=== PATIENT | female | born 1975 | race Caucasian/White ===

== ENCOUNTER 2020-02-29 09:52 | Outpatient (CLI) | payer OTHER, SELFPAY ==
--- NOTE | ~2020-02-29 | XR_ITS ---
XR knee LT 2V DATE: 02/29/2020 10:22 INDICATION: Left knee pain. Child with injury. TECHNIQUE: Standing AP and lateral views COMPARISON: None FINDINGS: There is suprapatellar knee joint effusion. No fracture or dislocation, periosteal reaction or bone destruction, radiopaque intra-articular loose body or chondrocalcinosis is detected. IMPRESSION: Knee joint effusion Reviewed, dictated and finalized at location A. IMPRESSION: Knee joint effusion
== END 2020-02-29 09:53 | disposition home or self-care (01) ==
LOC: ANHIMG 10:00
PROVIDERS: PCP Family Medicine; Visit Provider Nurse Practitioner Family
DX: M25.562 Pain in left knee (principal); M25.462 Effusion, left knee
CPT/HCPCS: 73560

== ENCOUNTER 2020-05-28 10:18 | Outpatient (NON) | payer OTHER, SELFPAY ==
[2020-05-30 18:50] LABS: SARS-CoV-2 RNA PCR Positive
== END 2020-05-28 10:19 ==
LOC: ANHCOVIDDT 10:19
PROVIDERS: PCP Family Medicine; Visit Provider Physician Assistant Medical
DX: U07.1 COVID-19 (principal)
CPT/HCPCS: C9803; U0003

== ENCOUNTER 2020-09-05 16:17 | Outpatient (CLI) | payer OTHER, SELFPAY ==
--- NOTE | ~2020-09-05 | CT_ITS ---
EXAMINATION: CT abdomen pelvis wo con DATE: 09/05/2020 16:43 INDICATION: Lower abdominal pain TECHNIQUE: Computed tomography (CT) of the abdomen and pelvis was performed without intravenous contr ast. Automated exposure control and iterative reconstruction technique were employed. Exam dose: 714 .95 mGy-cm total exam DLP. COMPARISON: right upper quadrant abdominal ultrasound, reported normal FINDINGS: The lung bases are clear. Normal heart size. No pericardial or pleural effusion. The liver, gallbladder, bile ducts, spleen, pancreas, pancreatic duct and adrenal glands are unremark able. 2.5 x 4 mm nonobstructing lower pole left renal calculus. No other urinary tract calculus or hydroure teronephrosis. The urinary bladder is evacuated. Uterus and adnexal areas are unremarkable. Normal caliber of the abdominal aorta. No intraperitoneal or retroperitoneal or pelvic mass lesion or adenopathy or ascites. Normal appendix. There is a prominent of fecal material in the colon but no bowel obstruction. No bow el wall thickening, pneumatosis or intraperitoneal free air. Small fat-containing umbilical hernia. There are bilateral L5 pars interarticularis defects with associated grade 1 anterolisthesis at L5-S1 . Severe degenerative disc disease at L5-S1. No suspicious osteolytic or osteoblastic lesions. IMPRESSION: 2.5 x 4 mm nonobstructing lower pole left renal calculus; no other urinary tract calculu s or hydroureteronephrosis Bilateral L5 pars interarticularis defects with grade 1 anterolisthesis at L5-S1 Severe degenerative disc disease at L5-S1 Reviewed, dictated and finalized at Location A. Reviewed, dictated and finalized at location A. IMPRESSION: 2.5 x 4 mm nonobstructing lower pole left renal calculus; no other urinary tract calculus or hydroureteronephrosis Bilateral L5 pars interarticularis defects with grade 1 anterolisthesis at L5-S 1 Severe degenerative disc disease at L5-S1
== END 2020-09-05 16:18 | disposition home or self-care (01) ==
PROVIDERS: PCP Family Medicine; Visit Provider Nurse Practitioner Family
DX: R10.30 Lower abdominal pain, unspecified (principal); R50.9 Fever, unspecified; R53.83 Other fatigue; N20.0 Calculus of kidney; M51.37 Other intervertebral disc degeneration, lumbosacral region
CPT/HCPCS: 74176

== ENCOUNTER → 2020-11-26 06:40 | Outpatient (CLI) | payer OTHER, SELFPAY ==
[2020-11-26 16:44] LABS: SARS-CoV-2 RNA PCR Negative
== END ==
PROVIDERS: PCP Family Medicine; Visit Provider Nurse Practitioner Family
DX: J02.9 Acute pharyngitis, unspecified (principal); Z20.822 Contact with and (suspected) exposure to COVID-19
CPT/HCPCS: C9803; U0003; U0005

== ENCOUNTER 2020-12-19 14:17 | Outpatient (CLI) | payer OTHER, SELFPAY ==
--- NOTE | ~2020-12-19 | MR_ITS ---
EXAMINATION: MR knee LT wo con DATE: 12/19/2020 15:44 INDICATION: Internal derangement of the left knee with left knee pain, joint laxity and positive McMu rray test. TECHNIQUE: Magnetic resonance imaging (MRI) of the left knee was performed without intravenous contra st. Sequences included coronal PD-weighted FSE, coronal PD-weighted FS FSE, sagittal T2-weighted FSE , sagittal PD-weighted FS FSE and axial PD weighted fat saturated FSE. COMPARISON: None. FINDINGS: Medial compartment: Medial meniscus is normal. Small region of partial-thickness chondral fissuring which appears to invo lve up to 50% the cartilage thickness but without degenerative subchondral changes at the lateral fozia e of the anterior to central weightbearing medial femoral condyle. Normal cartilage along the medial tibial plateau. Lateral compartment: Lateral meniscus is normal. Articular cartilage is normal. Patellofemoral compartment: Deep chondral fissuring at the medial and lateral patellar facets along either side of the apical rid ge with small focus of mild subarticular edema underlying the fissuring at the superomedial aspect of the lateral facet. Mild subarticular edema along the medial side of a band of partial-thickness jose juan dral ulceration and fissuring at the central aspect of the medial trochlea. Ligaments and tendons: Anterior and posterior cruciate ligaments are normal. The medial collateral ligament and fibular shaina ateral ligament complex are normal. The extensor mechanism is normal. The visualized medial and later al hamstring tendons as well as the iliotibial band are normal. Fluid: Small amount of fluid at the lateral gutter of the suprapatellar pouch which is within normal limits. No loose osteochondral bodies identified. Osseous/other: Bone alignment is normal. Normal marrow signal aside from the previously noted small foci of mild sub articular edema. No fracture or pathologic marrow replacing process. IMPRESSION: 1. Mild osteoarthritis with regions of moderate grade chondromalacia with partial-thickness fissuring along the weightbearing medial femoral condyle and with moderate to high-grade chondromalacia in the patellofemoral compartment as detailed above. 2. Normal menisci and stabilizing ligaments of the knee. Reviewed, dictated and finalized at location A. IMPRESSION: 1. Mild osteoarthritis with regions of moderate grade chondromalacia with parti al-thickness fissuring along the weightbearing medial femoral condyle and with moderate to high-grade chondromalacia in the patellofemoral compartment as deta iled above. 2. Normal menisci and stabilizing ligaments of the knee.
== END 2020-12-19 14:18 | disposition home or self-care (01) ==
LOC: ANHIMG 14:18
PROVIDERS: PCP Family Medicine; Visit Provider Nurse Practitioner Family
DX: M23.8X2 Other internal derangements of left knee (principal); S83.207A Unspecified tear of unspecified meniscus, current injury, left knee, initial encounter; X58.XXXA Exposure to other specified factors, initial encounter; M17.12 Unilateral primary osteoarthritis, left knee
CPT/HCPCS: 73721

== ENCOUNTER → 2021-09-06 14:23 | Outpatient (CLI) | payer OTHER, SELFPAY ==
--- NOTE | ~2021-09-06 | US_ITS ---
EXAMINATION: US pelvic complete DATE: 09/06/2021 15:07 INDICATION: Abnormal uterine and vaginal bleeding, unspecified. TECHNIQUE: Multiple transabdominal sonographic images of the pelvis were obtained. COMPARISON: CT abdomen and pelvis 09/05/2020 FINDINGS: The uterus measures 8.7 x 3.9 x 5.8 cm. There is no free fluid in the pelvis. The endometrial complex measures 4 mm in thickness. The right ovary measures 2.1 x 1.4 x 1.7 cm. The left ovary measures 3.0 x 1.7 x 2.3 cm. There is normal vascular flow in the ovaries. IMPRESSION: 1. Normal pelvis. Reviewed, dictated and finalized at location A. IMPRESSION: 1. Normal pelvis.
== END ==
PROVIDERS: PCP Family Medicine; Visit Provider Family Medicine
DX: N93.9 Abnormal uterine and vaginal bleeding, unspecified (principal)
CPT/HCPCS: 76856

== ENCOUNTER → 2022-03-02 13:47 | Outpatient (CLI) | payer OTHER, SELFPAY ==
--- NOTE | ~2022-03-02 | XR_ITS ---
EXAMINATION: XR chest 2V 03/02/2022 13:58 INDICATION: Shortness of breath and cough PROCEDURE: 2 view chest COMPARISON: 12/05/2011 FINDINGS: The lungs are clear. The cardiomediastinal silhouette is within normal limits. There are no pleural effusions. There is no pneumothorax suspected. IMPRESSION: 1: NO ACUTE CARDIOPULMONARY DISEASE. Reviewed, dictated and finalized at location A.
== END ==
PROVIDERS: PCP Family Medicine; Visit Provider Nurse Practitioner Family
DX: R06.02 Shortness of breath (principal); R05.9 Cough, unspecified
CPT/HCPCS: 71046

== ENCOUNTER → 2022-04-16 15:51 | Outpatient (CLI) | payer OTHER, SELFPAY ==
--- NOTE | ~2022-04-16 | XR_ITS ---
XR_[id number]_CR DATE: 04/16/2022 16:10 INDICATION: Foot pain TECHNIQUE: Standing AP view. Lateral and bilateral oblique views. COMPARISON: None FINDINGS: Mild plantar calcaneal enthesopathy. No fracture or dislocation, periosteal reaction or bone destruction, erosive change. IMPRESSION: Mild plantar calcaneal enthesopathy Reviewed, dictated and finalized at Location A. Reviewed, dictated and finalized at location A. NG CHECKER
== END ==
PROVIDERS: PCP Family Medicine; Visit Provider Family Medicine
DX: M79.89 Other specified soft tissue disorders (principal); M77.32 Calcaneal spur, left foot
CPT/HCPCS: 73630

== ENCOUNTER → 2022-09-21 10:47 | Outpatient (CLI) | payer OTHER, SELFPAY ==
--- NOTE | ~2022-09-21 | MR_ITS ---
MRI of the brain Clinical History: Headache Technique: Axial and sagittal T1-weighted images were acquired. These were followed by axial T2-weigh deborah, diffusion weighted, gradient, and FLAIR images. Following intravenous administration of 15 cc Mu ltiHance gadolinium, T1-weighted fat-sat imaging was performed in the axial, sagittal, and coronal pl anes. Findings: There is a 7 mm enhancing mass along the right frontal convexity, most likely a small menin gioma (axial postcontrast image 17). No other mass lesion identified. No acute infarct or intracrania l hemorrhage.. Ventricles and subarachnoid spaces are unremarkable. Orbits are unremarkable. Paranasal sinuses and m astoid air cells are clear. Major intracranial flow voids appear intact. Sagittal midline structures are intact. No other abnormal postcontrast enhancement identified. IMPRESSION: 7 mm meningioma along the right frontal convexity. No other significant findings. Reviewed, dictated and finalized at location .
== END ==
PROVIDERS: PCP Family Medicine; Visit Provider Nurse Practitioner Family
DX: D32.0 Benign neoplasm of cerebral meninges (principal); R51.9 Headache, unspecified
CPT/HCPCS: 70553; A9577

== ENCOUNTER → 2023-01-12 08:18 | Outpatient (CLI) | payer OTHER, SELFPAY ==
--- NOTE | ~2023-01-12 | MM_ITS ---
EXAMINATION: MM screening carmen BI w rita HISTORY: Screening mammogram TECHNIQUE: Craniocaudal and mediolateral oblique 3-D tomosynthesis images were obtained and synthetic 2-D images were generated. CAD analysis was submitted and interpreted. COMPARISON: No prior mammogram is available for comparison at this institution. BREAST PARENCHYMAL COMPOSITION: The breasts are almost entirely fatty. FINDINGS: There is no evidence of suspicious mass, calcification, or architectural distortion to sugg est malignancy in either breast. There has been no suspicious interval change. IMPRESSION: 1. No mammographic evidence of malignancy. 2. Recommend routine screening mammography in one year. BI-RADS Category 1: Negative.... Reviewed, dictated and finalized at location A.
== END ==
PROVIDERS: PCP Family Medicine; Visit Provider Obstetrics & Gynecology
DX: Z12.31 Encounter for screening mammogram for malignant neoplasm of breast (principal)
CPT/HCPCS: 77063; 77067

== ENCOUNTER 2023-03-12 09:15 | Outpatient (CLI) | payer OTHER, SELFPAY ==
--- NOTE | 2023-04-02 14:27 | WPDHOMESLEEP ---
Sleep Study - Home Unattended Date of Study: 03/12/23 Ordering Provider: Manjeet Ferrer MD Interpreting Provider: Elham Alcocer, DO Home Sleep Study Type: Watch PAT Height: 1.63 m Weight: 83.915 kg Body Mass Index: 31.7 Neck Circumference (inches): 13 Hugo: 15 Reason for Sleep Study Daytime hypersomnia Sleep History The patient is a 48 old female with anxiety and depression night had a sleep study ordered by her primary care physician for evaluation of daytime hypersomnia. The patient occasionally awakens from sleep short of breath. She occasionally awakens at night with heartburn, belching or cough. She occasionally snores but is rarely loud enough that others complain. She frequently has trouble sleeping when she has a cold. She rarely wakes up gasping for air throughout the night. She denies having breathing problems at night observed by herself or others. She denies sweating excessively at night. She occasionally has heart palpitations or irregular heartbeats during the night. She frequently falls asleep during the day but never while driving. She denies sleep paralysis and cataplexy. She rarely has trouble at school or work due to sleepiness. She occasionally experiences vivid dreamlike scenes upon awakening or falling asleep. She denies feeling afraid of going to sleep. She rarely has nightmares. She occasionally remembers her dreams. She occasionally has thoughts racing through her mind. She occasionally feels sad, depressed and anxious. She occasionally has muscular tension. She frequently notices parts of her body jerk. She rarely kicks during the night. She rarely has crawling and aching feelings in her legs and rarely has leg pain during the night. She occasionally grinds her teeth during sleep but rarely awakens with morning jaw pain. She is rarely bothered by pain during the day and rarely awakened by pain during the night. She rarely wakes up feeling stiff in the morning. She rarely wakes up with sore or achy muscles. She occasionally wakes up with pain in the neck, spine or other joints. She goes to bed at 9:00 p.m. on weekdays and at 10:00 p.m. on the weekends. It takes her 15-30 minutes to fall asleep. She wakes up 4-6 times throughout the night for unknown reasons and she is able to fall back asleep within 5-15 minutes. She wakes up at 5:30 a.m. on weekdays and between 8:30-10 a.m. on the weekends. She typically gets 7.5-8 hours of sleep per night. She will stay in bed for 5 minutes after waking up in the morning. The patient currently lives with her and 3 children. She denies consuming any caffeinated beverages within 2 hours before bedtime. She denies engaging in physical exercise before bedtime. She will watch television before falling asleep. She will take naps in the afternoon or the evening but they are not refreshing She consumes 2-4 caffeinated beverages per day. She consumes 1-2 alcoholic beverages per week. She denies tobacco and recreational drug use. [facility] Past Medical History Medical History Abdominal cramping Abnormal Pap smear of cervix 12/24/2018 Ascus Anemia Anxiety Apnea Asthma BMI 30.0-30.9,adult BMI 31.0-31.9,adult BMI 32.0-32.9,adult Chest pain COVID-19 Depression Depression with anxiety Foot swelling Low libido Macrocytosis without anemia MVP (mitral valve prolapse) Screening mammogram, encounter for Screening mammogram, encounter for Snoring Spondylolisthesis Surgical History Surgical History History of dilation and curettage 09/08/15 hscope d&c/Novasure endometrial ablation History of endometrial ablation 09/08/15 hscope d&c/Novasure endometrial ablation Family History Family History Father Family history of premature coronary heart disease Acute myocardial in
[2023-04-02 14:32] VITALS: BMI 31.7
== END 2023-03-13 12:00 | disposition home or self-care (01) ==
LOC: ANHCSM 09:15
PROVIDERS: PCP Family Medicine; Visit Provider Family Medicine
DX: G47.10 Hypersomnia, unspecified (principal); G47.9 Sleep disorder, unspecified
CPT/HCPCS: 95800

== ENCOUNTER 2024-03-19 11:09 | Outpatient (CLI) | payer OTHER, SELFPAY ==
--- NOTE | ~2024-03-19 | US_ITS ---
EXAM: ABDOMEN ULTRASOUND HISTORY: R10.31 - Right lower quadrant pain COMPARISON: None FINDINGS: LIVER: The liver is unremarkable in echogenicity. The main portal vein is patent demonstrating hepatopedal flow. GALLBLADDER: No stones are identified within the gallbladder. No gallbladder wall thickening or pericholecystic fluid. BILE DUCTS: Common bile duct measures 3.mm. PANCREAS: Limited evaluation of the pancreas secondary to overlying bowel gas SPLEEN: The spleen is unremarkable in echogenicity and size measuring 9.5cm in longitudinal dimension . RIGHT KIDNEY: 10.7 cm. In length. No hydronephrosis or bulky renal calculi. LEFT KIDNEY: 11.7cm in length. No hydronephrosis or renal calculi. VASCULATURE : The abdominal aorta is nonaneurysmal. The IVC is patent. IMPRESSION: Unremarkable sonographic evaluation of the abdomen, as detailed above. Evaluation of the pancreas is limited by overlying bowel gas. Reviewed, dictated and finalized at location A.
== END 2024-03-19 11:10 | disposition home or self-care (01) ==
LOC: GOSHIMG 11:09
PROVIDERS: PCP Family Medicine; Visit Provider Physician Assistant Medical
DX: R10.31 Right lower quadrant pain (principal)
CPT/HCPCS: 76700